=== PATIENT | male | born 1970 | race Caucasian/White ===

== ENCOUNTER 2017-12-31 14:02 | Outpatient (REF) | payer MEDICAID, SELFPAY ==
[2017-12-31 20:49] LABS: Absolute Basophil Count 0.03 k/cumm (0.0-0.2); Absolute Eosinophil Count 0.12 k/cumm (0.0-0.7); Absolute Lymphocyte Count 2.12 k/cumm (1.2-3.4); Absolute Monocyte Count 0.35 k/cumm (0.11-0.7); Absolute Neutrophil Count 3.39 k/cumm (1.2-6.7); Basophils % 0.5; HCT 44.6 % (40.0-50.0); HGB 14.7 g/dL (13.5-17.5); Lymphocytes % 35.3; Mean Corpuscular Hemoglobin 29.7 pg (27.0-33.0); Mean Corpuscular Volume 90.1 fL (80-95); Mean Platelet Volume 9.9 fL (8.0-11.0); Monocytes % 5.8; Neutrophils % 56.4; Platelet Count 303 x1000/uL (130-400); RBC 4.95 m/cumm (4.50-6.00); RBC Distribution Width 13.8 % (11.8-14.1); White Blood Cell Count 6.01 k/cumm (4.4-10.8)
[2017-12-31 21:07] LABS: ALT 26 U/L (12-78); AST 17 U/L (15-37); Albumin 3.9 g/dL (3.4-5.0); Alkaline Phosphatase 96 U/L (46-116); Anion Gap 8.3 mmol/L (3-11); BUN 12 mg/dL (7-18); Bilirubin, Total 1.2 mg/dL (0.2-1.0); CO2 29.7 mmol/L (21.0-32.0); CREATININE 0.97 mg/dL (0.70-1.30); Calcium 8.6 mg/dL (8.5-10.1); Chloride 105 mmol/L (98-107); Cholesterol 143 mg/dL (50-200); Glucose 97 mg/dL (70-100); HDL Cholesterol 40 mg/dL (40-60); LDL CHOLESTEROL 100 mg/dL (<100); Potassium 3.9 mmol/L (3.5-5.1); Sodium 143 mmol/L (136-145); Total Protein 7.7 g/dL (6.4-8.2); Triglyceride 111 mg/dL (30-150)
== END 2017-12-31 14:03 ==
LOC: NCHCN 14:02
PROVIDERS: PCP Family Medicine; Visit Provider Family Medicine
DX: K76.0 Fatty (change of) liver, not elsewhere classified (principal); F52.21 Male erectile disorder; Z00.00 Encounter for general adult medical examination without abnormal findings
CPT/HCPCS: 80053; 80061; 83721; 85025

== ENCOUNTER 2019-01-01 11:06 | Outpatient (REF) | payer MEDICAID, SELFPAY ==
[2019-01-01 21:28] LABS: Abs Immature Grans 0.01 k/cumm (0.0-0.09); Absolute Basophil Count 0.02 k/cumm (0.0-0.2); Absolute Monocyte Count 0.26 k/cumm (0.11-0.7); Basophils % 0.4; Eosinophils % 2.2; HCT 48.1 % (40.0-50.0); HGB 15.9 g/dL (13.5-17.5); Immature Grans % 0.2; Lymphocytes % 33.4; Mean Corp. HGB Concentration 33.1 g/dL (32.0-36.0); Mean Corpuscular Volume 87.6 fL (80-95); Mean Platelet Volume 9.8 fL (8.0-11.0); Monocytes % 5.8; Platelet Count 300 x1000/uL (130-400); RBC 5.49 m/cumm (4.50-6.00); RBC Distribution Width 13.5 % (11.8-14.1); White Blood Cell Count 4.49 k/cumm (4.4-10.8)
[2019-01-01 21:29] LABS: ALT 33 U/L (16-63); Albumin 4.1 g/dL (3.4-5.0); Alkaline Phosphatase 92 U/L (46-116); Anion Gap 8.9 mmol/L (3-11); BUN 18 mg/dL (7-18); CO2 29.1 mmol/L (21.0-32.0); CREATININE 1.05 mg/dL (0.70-1.30); Calcium 8.7 mg/dL (8.5-10.1); Calculated LDL 102 mg/dL; Chloride 104 mmol/L (98-107); Cholesterol 163 mg/dL (50-200); Glucose 117 mg/dL (70-100); HDL Cholesterol 41 mg/dL (40-60); Sodium 142 mmol/L (136-145); Total Protein 7.9 g/dL (6.4-8.2); Triglyceride 104 mg/dL (30-150)
[2019-01-01 21:49] LABS: AST 15 U/L (15-37)
[2019-01-01 22:08] LABS: Bilirubin, Direct 0.17 mg/dL (0.00-0.20)
== END 2019-01-01 11:26 ==
LOC: NCHCN 11:06
PROVIDERS: PCP Family Medicine; Visit Provider Family Medicine
DX: K76.0 Fatty (change of) liver, not elsewhere classified (principal); R10.13 Epigastric pain; Z00.00 Encounter for general adult medical examination without abnormal findings
CPT/HCPCS: 80053; 80061; 82248; 85025

== ENCOUNTER 2021-04-18 12:20 | Outpatient (REF) | payer MEDICAID, SELFPAY ==
[2021-04-18 18:17] LABS: Hemoglobin A1C 6.1 % (<5.7)
[2021-04-18 18:28] LABS: Anion Gap 7.5 mmol/L (3-11); BUN 20 mg/dL (7-18); CO2 29.5 mmol/L (21.0-32.0); CREATININE 0.9 mg/dL (0.70-1.30); Calcium 8.9 mg/dL (8.5-10.1); Chloride 106 mmol/L (98-107); Glucose 106 mg/dL (74-106); Potassium 3.9 mmol/L (3.5-5.1); Sodium 143 mmol/L (136-145)
== END 2021-04-18 12:21 | disposition home or self-care (01) ==
LOC: NCHCN 12:20
PROVIDERS: PCP Family Medicine; Visit Provider Nurse Practitioner Family
DX: R73.03 Prediabetes (principal); K76.0 Fatty (change of) liver, not elsewhere classified; E80.7 Disorder of bilirubin metabolism, unspecified
CPT/HCPCS: 80048; 83036

== ENCOUNTER 2022-04-18 13:53 | Outpatient (REF) | payer MEDICAID, SELFPAY ==
[2022-04-18 15:11] LABS: Anion Gap 10.5 mmol/L (3-11); BUN 26 mg/dL (7-18); CO2 27.5 mmol/L (21.0-32.0); Calcium 9.3 mg/dL (8.5-10.1); Chloride 103 mmol/L (98-107); Estimated GFR 92.26 (mL/min/1.73m2); Glucose 115 mg/dL (74-106); Potassium 3.9 mmol/L (3.5-5.1); Sodium 141 mmol/L (136-145)
== END 2022-04-18 13:54 | disposition home or self-care (01) ==
LOC: NCHCN 13:53
PROVIDERS: PCP Family Medicine; Visit Provider Nurse Practitioner Family
DX: R73.03 Prediabetes (principal); Z00.00 Encounter for general adult medical examination without abnormal findings
CPT/HCPCS: 80048; 83036

== ENCOUNTER 2023-04-19 13:30 | Outpatient (REF) | payer MEDICAID, SELFPAY ==
[2023-04-19 21:50] LABS: HCT 46.6 % (40.0-50.0); HGB 15.4 g/dL (13.5-17.5); MCH 28.9 pg (27.0-33.0); MCV 87 fL (80-95); MPV 9.6 fL (8.0-11.0); Platelet Count 288 10^3/uL (130-400); RBC 5.33 10^6/uL (4.36-5.78); RDW 13.2 % (11.8-14.1); RDW-SD 42.2 fL; WBC 5.61 10^3/uL (4.4-10.8)
[2023-04-19 22:09] LABS: Hemoglobin A1C 6.2 % (<5.7)
[2023-04-19 22:14] LABS: ALT 29 U/L (16-63); AST 28 U/L (15-37); Albumin 4.1 g/dL (3.4-5.0); Alkaline Phosphatase 79 U/L (46-116); Anion Gap 5.1 mmol/L (3-11); BUN 21 mg/dL (7-18); Bilirubin, Total 1.3 mg/dL (0.2-1.0); CO2 29.9 mmol/L (21.0-32.0); CREATININE 0.9 mg/dL (0.70-1.30); Calcium 8.9 mg/dL (8.5-10.1); Calculated LDL 128 mg/dL (<100); Chloride 105 mmol/L (98-107); Cholesterol 194 mg/dL (<200); Estimated GFR 104.05 (mL/min/1.73m2); Glucose 105 mg/dL (74-106); HDL Cholesterol 48 mg/dL (40-60); Potassium 3.7 mmol/L (3.5-5.1); Sodium 140 mmol/L (136-145); Total Protein 7.8 g/dL (6.4-8.2); Triglyceride 94 mg/dL (<150)
== END 2023-04-19 13:31 | disposition home or self-care (01) ==
LOC: NCHCN 13:30
PROVIDERS: Nurse Practitioner Family; PCP Family Medicine; Visit Provider Family Medicine
DX: Z00.00 Encounter for general adult medical examination without abnormal findings (principal)
CPT/HCPCS: 80053; 80061; 85027; 83036

== ENCOUNTER 2024-05-15 09:45 | Outpatient (REF) | payer MEDICAID, SELFPAY ==
[2024-05-15 16:12] LABS: ALT 38 U/L (16-63); AST 27 U/L (15-37); Albumin 3.9 g/dL (3.4-5.0); Alkaline Phosphatase 94 U/L (46-116); Anion Gap 9.3 mmol/L (3-11); BUN 23 mg/dL (7-18); Bilirubin, Direct 0.2 mg/dL (0.0-0.2); Bilirubin, Total 0.77 mg/dL (0.2-1.0); CO2 25.7 mmol/L (21.0-32.0); CREATININE 1.2 mg/dL (0.70-1.30); Calcium 8.8 mg/dL (8.5-10.1); Calculated LDL 112 mg/dL (<100); Chloride 108 mmol/L (98-107); Cholesterol 184 mg/dL (<200); Estimated GFR 73.22 (mL/min/1.73m2); Glucose 109 mg/dL (74-106); HDL Cholesterol 48 mg/dL (40-60); Sodium 143 mmol/L (136-145); Total Protein 7.5 g/dL (6.4-8.2); Triglyceride 123 mg/dL (<150)
== END 2024-05-15 09:46 | disposition home or self-care (01) ==
LOC: NCHCN 09:45
PROVIDERS: PCP Family Medicine; Visit Provider Nurse Practitioner Family
DX: R73.03 Prediabetes (principal); R17 Unspecified jaundice; Z13.220 Encounter for screening for lipoid disorders
CPT/HCPCS: 80053; 80061; 82248; 83036